=== PATIENT | male | born 1965 | race Caucasian/White ===

== ENCOUNTER 2024-05-02 08:02 | Inpatient (IN) | payer OTHER, SELFPAY ==
[2024-05-01 20:55] VITALS: BP 101/72
[2024-05-01 21:11] LABS: % Basophils 0.8 % (0-2); % Eosinophils 1.6 % (0-6); % Immature Granulocytes 0.6 % (0-0.5); % Lymphocytes 26.9 % (20.5-51.1); % Monocytes 11.2 % (1.7-9.3); % Neutrophils 58.9 % (42.2-75.2); Absolute Basophils 0.1 10^3/uL (0-0.2); Absolute Eosinophils 0.2 10^3/uL (0-0.7); Absolute Immature Granulocytes 0.1 10^3/uL (0-0.05); Absolute Lymphocytes 2.5 10^3/uL (1.2-3.4); Absolute Monocytes 1.1 10^3/uL (0.1-0.6); Absolute Neutrophils 5.6 10^3/uL (1.4-6.5); Hematocrit 45.9 % (39.0-52.0); Mean Corp Hgb Conc. 34.9 g/dL (33.0-37.0); Mean Corpuscular Hgb 27.8 pg (27.0-31.0); Mean Corpuscular Volume 79.7 fL (80.0-94.0); Nucleated Red Blood Cells % 0 % (-); Platelet Count 269 10^3/uL (130-400); Red Blood Cell Count 5.76 10^6/uL (4.70-6.10); Red Cell Dist. Width 15.1 % (11.5-14.5); White Blood Cell Count 9.5 10^3/uL (4.8-10.8)
[2024-05-01 21:22] LABS: Lactic Acid 0.8 mmol/L (0.7-2.0)
[2024-05-01 21:33] LABS: ALT (SGPT) 26 U/L (0-50); AST (SGOT) 29 U/L (17-59); Albumin 4.9 g/dl (3.5-5.0); Alkaline Phosphatase 78 U/L (38-126); Blood Urea Nitrogen 39 mg/dl (9-20); Calcium 10.4 mg/dl (8.4-10.2); Carbon Dioxide 18 mmol/L (22-30); Chloride 98 mmol/L (98-107); Glucose 143 mg/dl (70-99); Lipase 58 U/L (23-300); Potassium 4.8 mmol/L (3.5-5.1); Sodium 130 mmol/L (135-145); Total Bilirubin 0.7 mg/dl (0.2-1.3); Total Protein 7.8 g/dl (6.3-8.2); eGFR 49.02
[2024-05-02] VITALS (15 sets, daily range): BP systolic 102–152; BP diastolic 57–98; BMI 23.4; BMI 21.9
--- NOTE | 2024-05-02 01:46 | EDRN ---
Pt sleeping when this RN entered room to assess him. Pt says he has a lesion in his intestines and it is getting inflamed. Pt had abd pain earlier but does not have any pain now. No n/v/d/c, fever/chills/cough, cp, sob, urinary symptoms,
weakness, dizziness. Pt has not eaten for 2 days - cannot say why.
[2024-05-02] MEDS: NSS 2000 IV (02:54)
[2024-05-02] MEDS: ZOFRAN 4 MG IV (02:54)
[2024-05-02] MEDS: DILAUDID 0.25 MG IV (02:58)
[2024-05-02] MEDS: OMNIPAQUE 50 ML PO (03:00)
--- NOTE | 2024-05-02 03:04 | EDRN ---
Pt was sleeping when this RN entered room to medicate him. Pt told this RN he does not take any medications regularly however when Dr Klein assessed pt he told her the medications he was taking. Med rec redone. Pt said 'I must not have heard you.'
Asked pt what his pain level is and he said 10/10. Asked pt if this is the worst pain he has/could have and he said his cancer pain was worse. Asked pt to re-rate pain and explained why pain scale is used with pain medication administration. Pt
got agitated with this RN's request and said he would not rate his pain.
[2024-05-02 03:58] LABS: Urine Albumin 1+ (Neg - Trace); Urine Bilirubin 1+ (Negative); Urine Character Slightly Cloudy (Clear); Urine Color Amber; Urine Glucose Negative (Negative); Urine Ketone Negative (Negative); Urine Leukocyte 1+ (Negative); Urine Nitrite Negative (Negative); Urine Occult Blood Negative (Negative); Urine Urobilinogen 1+ (Neg - 1+)
[2024-05-02 04:46] LABS: Urine Amorphous Seen; Urine Granular Cast >15 /LPF (0); Urine Hyaline Cast >15 /LPF (0-2); Urine Mucus Moderate; Urine Squamous Cell >30 /LPF (Few)
[2024-05-02 04:47] LABS: Urine Bacteria Many (Negative)
--- NOTE | 2024-05-02 05:54 | ED.GENMED ---
History of Present Illness
General
Chief Complaint: Abdominal Pain
Source: patient
Exam Limitations: none
Time Seen by Provider: 05/02/24 02:13
Nursing documentation reviewed up to this point in time: agreed with
History of Present Illness
History of Present Illness:
This is a 59-year-old gentleman who has history of adrenal carcinoma with resection 2020 received adjuvant focal XRT which completed 2021. No history of recurrence.
He has history of bipolar disorder and more recently has been complaining of intermittent severe mid to right lower quadrant abdominal pain with abdominal bloating, intermittent nausea and vomiting.
He states he has history of abdominal adhesions with prior small bowel obstruction requiring hospitalization perhaps 1 to 2 years ago.
More recently he presented to [facility] ED mid March with similar complaints of crampy abdominal pain, bloating and CAT scan revealed terminal ileitis with partial small bowel obstruction and concern for sigmoid colitis. He declined
admission at that time but has since followed up with GI, Dr. Mascorro and was started on Rinvoq for probable Crohn's disease April 16.
He underwent colonoscopy April 25. Colon biopsies were negative for inflammation. He states there was concern for inflammation/a noncancerous lesion for which GI recommended general surgery input. Thus far patient has not heard from the
general surgeon.
Over the past 4 days patient complains of persistent crampy mid to right lower quadrant abdominal pain, abdominal bloating, intermittent nausea and vomiting. He has had poor oral intake over the past 4 days. He has been passing intermittent gas
and occasional soft stools. He denies diarrhea, denies bloody stools nor mucoid stools.
He has not had a fever nor chills. No chest pain no cough no shortness of breath.
He has not been taking anything for discomfort.
Along with Rinvoq, his other daily medications include gabapentin, Trintellix, BuSpar, trazodone.
Past History
Past History
ED Past Medical History: Cancer (Adrenal carcinoma resected 2020), Psychiatric and Other (Newly diagnosed Crohn's disease with terminal ileitis noted on CAT scan April 06)
ED Past Surgical History: Cholecystectomy and Other (Adrenal carcinoma resection 2020)
Social History
Tobacco: Smoker
Alcohol: None
Drug: None
Personal: Single
Living: alone
Employment: Employed
Family History
Family History: Other (Noncontributory)
Phy Exam
Physical Exam
Physical Exam:
GENERAL: 59-year-old gentleman appears somewhat older than stated age, awake, minimally drowsy, intermittently appears in mild to moderate distress. Easily communicative.
EYE: pupils equal and reactive. anicteric
NECK: Supple, nontender, no meningismus, no significant adenopathy.
ENT: posterior pharynx is clear, oral mucosa is moderately dry. TM clear b/l, nares patent.
CARDIAC: Regular rate and rhythm. no murmur.
LUNGS: Clear breath sounds bilaterally, no acute respiratory distress, no wheezes/rales/rhonchi
ABDOMEN: Soft, mildly distended, moderate generalized tenderness to palpation, no r/g, no cvat. Moderately hyperactive bowel sounds.
NEUROLOGICAL: Alert and oriented x3, no focal neuro deficits.
SKIN: Warm and dry, normal color, skin intact. No rash.
MUSCULOSKELETAL: No C/C/E. peripheral pulses are full and equal b/l. No palpable tenderness.
PSYCH: Normal and appropriate interaction.
Course
Orders/Labs/Results
Orders:
Orders
05/01/24 21:05
Complete Blood Count/With Diff Urgent
Comprehensive Metabolic Panel Urgent
Lactate Level [Lactic Acid] Urgent
Lipase Urgent
05/02/24 02:29
0.9% Sodium Chloride 1000 ml [Nss] 2,000 ml IV BOLUS
HYDROmorphone [Dilaudid] 0.25 mg IV NOW STA
Iohexol [Omnipaque] See Protocol PO NOW STA
Ondansetron Injectable [Zofran] 4 mg IV NOW STA
05/02/24 02:30
CT Abd/pel W Iv And Oral Contr Urgent
Comment:
Reason For Exam: crampy abd pain x 4 days, N/V
05/02/24 03:44
Urinalysis Reflex To Culture Urgent
Date Specimen was Collected: 05/02/24
Time Specimen was Collected: 03:42
Urine Microscopic Reflex Cult Urgent
Urine Culture Urgent
NAMAN Source: U
Specimen Description:
Date Specimen was Collected: 05/02/24
Time Specimen was Collected: 03:42
Abnormal Lab Results
05/01/24 05/02/24
21:05 03:44
MCV 79.7 L fL
(80.0-94.0)
RDW 15.1 H %
(11.5-14.5)
Abs Immat Gran (auto) 0.1 H 10^3/uL
(0-0.05)
Absolute Monos (auto) 1.1 H 10^3/uL
(0.1-0.6)
Immature Gran % 0.6 H %
(0-0.5)
Monocytes % 11.2 H %
(1.7-9.3)
Sodium 130 L mmol/L
(135-145)
Carbon Dioxide 18 L mmol/L
(22-30)
BUN 39 H mg/dl
(9-20)
Creatinine 1.6 H mg/dL
(0.7-1.3)
Glucose 143 H mg/dl
(70-99)
Calcium 10.4 H mg/dl
(8.4-10.2)
Urine Bilirubin 1+ A
(Negative)
Leukocyte Esterase Rfl 1+ A
(Negative)
Urine RBC 7-10 A /HPF
(0-2)
Urine WBC (Reflex) 11-15 A /HPF
(0-5)
Urine Bacteria (Reflex) Many A
(Negative)
Urine Albumin (Reflex) 1+ A
(Neg - Trace)
05/01/24 21:05
05/01/24 21:05
Vital Signs
Initial and Last Documented VS:
Initial Vital Signs
Temp Pulse Resp BP Pulse Ox
98.3 F 105 22 101/72 95
05/01/24 20:55 05/01/24 20:55 05/01/24 20:55 05/01/24 20:55 05/01/24 20:55
Last Documented Vital Signs
Temp Pulse Resp BP Pulse Ox
97.9 F 92 16 152/89 95
05/02/24 01:50 05/02/24 04:00 05/02/24 01:50 05/02/24 04:00 05/02/24 04:00
MDM/Problems Addressed
Differential Diagnosis Includes:
Concern for small bowel obstruction, concern for exacerbation of Crohn's disease, concern for adhesive disease, colitis, electrolyte abnormality/dehydration.
Clinically patient appears dry. However remains hemodynamically stable, afebrile.
Labs thus far reveal normal CBC, normal lactic acid.
Chemistries show elevated creatinine of 1.6, elevated BUN of 39. Mild hyponatremia, mild acidosis.
Patient notes no prior history of renal insufficiency and as he clinically appears dry and has had very poor oral intake over the past 4 days I suspect elevated creatinine/acute kidney injury is dehydration in nature.
Will initiate IV fluid bolus/resuscitation.
Will medicate for pain and nausea.
Will plan for CT abdomen pelvis with oral and IV contrast.
Chronic conditions affecting care: Immunosuppressed (Rinvoq) and Cancer
*Radiology
Radiology exam reviewed: radiology read reviewed (CAT scan shows severe terminal ileitis with high-grade small bowel obstruction.)
*Pulse Oximetry
Patient hypoxic: no
*Critical Care Note
Total Time (30-74mins, 75-104mins- exclusive of procedures): Not Applicable
Update Note
Update Note:
06:00
Patient is moderately more comfortable after IV pain medication and IV fluids.
CAT scan shows severe terminal ileitis with high-grade small bowel obstruction.
Due to acute kidney injury, severe nature of terminal ileitis patient will require acute hospitalization, continue IV fluids, GI input.
ED Attending Note
-
Portions of this chart may have been created with voice recognition software.� Occasional wrong word or��sound alike� substitutions may have occurred due to the inherent limitations of voice recognition software.
Discharge Plan
Departure
Patient Disposition: Admit
Date of Disposition: 05/02/24
Time of Disposition: 06:00
Admit to doctor: Carole
Presentation/result/management discussed w/ accepting MD/DO: Hospitalist
Condition: Fair
Discharge Problem:
severe terminal ileitis, SBO (small bowel obstruction), Acute kidney injury
Prescriptions:
No Action
trazodone 50 mg Tablet
50 mg PO HS
pantoprazole [Protonix] 40 mg Tablet,Delayed Release (Dr/Ec)
40 mg PO DAILY
gabapentin 300 mg Capsule
900 mg PO TID
buspirone 15 mg Tablet
15 mg PO BID
Trintellix 10 mg Tablet
10 mg PO DAILY
Rinvoq
1 tab PO DAILY
Patient Comments:
pt does not know mg
Referrals:
Dilan Mayes DO [Family Provider] -
Interventions
Interventions:
*Risk Screen - Suicide Last Done: 05/01/24 20:55
*General Assessment Last Done: 05/01/24 20:55
*Neglect/Abuse Screening Last Done: 05/01/24 20:55
ED- Fall Risk Assessment Last Done: 05/02/24 01:55
*ED COVID-19 Vaccine History Last Done: 05/02/24 01:45
GO-Vtwbth-Gcsmpesyhx Assessment Last Done: 05/02/24 01:55
Discharge Date and Time
Print Language: OCCITAN
--- NOTE | 2024-05-02 06:53 | HPS.HSE ---
Family Physician
-
Family Physician: Dilan Mayes
Chief Complaint
-
Abdominal pain
History of Present Illness
This is a 59-year-old male with past medical history of bipolar, adrenal carcinoma with resection in 2020 status post adjuvant radiation, in remission, presents to the emergency department with 4 days of increasing abdominal pain and distention.
Patient reports intermittent right lower quadrant abdominal pain with bloating and intermittent nausea and vomiting for several days. No diarrhea. No fevers or chills. Over the past 4 days the pain has been more persistent, crampy mid to right
lower quadrant with bloating and nausea and vomiting. Decreased p.o. intake over the last 4 days. He reports that he is passing gas and occasional soft stool. Denies bloody stools or mucoid stools. Became significantly severe today so he called
1 and he was brought to the emergency department.
Patient stated that he has a history of prior small bowel obstruction secondary to abdominal adhesions which required hospitalization. He was recently seen at an outside hospital where he had a CT scan that revealed terminal ileitis with partial
small bowel obstruction. He declined admission at that time since he had a follow-up with GI. He was started on Rinvoq for probable Crohn's disease. He did not get colonoscopy on April 25 which was negative for active disease. He stated that
there was concern for inflammation/noncancerous lesion for which GI recommended a general surgery input. He has not head from the general surgeon.
In the emergency department he was afebrile, blood pressure was 116/73 with a pulse of 83. Normal oxygen saturation. CBC was unremarkable. Electrolytes notable for a sodium of 130, a BUN of 39 and a creatinine of 1.6. LFTs were unremarkable.
Lipase normal. CT of the abdomen pelvis again shows severe terminal ileitis with strictures and a high-grade distal small bowel obstruction
Medical History
Past Medical History
Past Medical History: Reports Cancer (Renal cancer status post resection)
Additional Past Medical History:
Crohn's disease with, no ileitis noted on CT scan in March
Past Surgical History: Reports Cholecystectomy and Other (Adrenal carcinoma resection)
Social History
Tobacco: Smoker
Alcohol: None
Drug: None
Personal: Single
Living: Alone
Employment: Employed
Family History
Family History: Not pertinent
Allergies / Home Medications
Allergies reflects when Allergies were last updated in [facility].
Home Medications with original date entered in [facility]
Allergy/Medication List:
Allergies
Allergy/AdvReac Type Severity Reaction Status Date / Time
No Known Allergies Allergy Unverified 05/02/24 01:46
Home Medications
Rinvoq 1 tab PO DAILY 05/02/24
buspirone 15 mg tablet 15 mg PO BID 05/02/24
gabapentin 300 mg capsule 900 mg PO TID 05/02/24
pantoprazole 40 mg tablet,delayed release (Protonix) 40 mg PO DAILY 05/02/24
trazodone 50 mg tablet 50 mg PO HS 05/02/24
vortioxetine 10 mg tablet (Trintellix) 10 mg PO DAILY 05/02/24
Review of Systems
-
Constitutional: Reports No Symptoms
EENT: Reports No Symptoms
Respiratory: Reports No Symptoms
Abdomen/GI: Reports Abdominal Pain, Nausea and Vomiting
: Reports No Symptoms
Musculoskeletal: Reports No Symptoms
Skin: Reports No Symptoms
Neurological: Reports No Symptoms
Endocrine: Reports No Symptoms
Hematologic/Lymphatic: Reports No Symptoms
Psych: Reports No Symptoms
Physical Exam
Vital Signs
Vital Signs
Temp Pulse Resp BP Pulse Ox
97.9 F 83 14 116/73 95
05/02/24 01:50 05/02/24 06:15 05/02/24 06:15 05/02/24 06:15 05/02/24 06:15
Physical Exam
General: Well Developed, Appears in Distress and Pain
HEENT: NormoCephalic, Anicteric, Moist mucous membranes, Atraumatic and PERRLA
Respiratory: Clear
Cardiac: S1/S2 and Regular Rhythm
Breast: Deferred by me
GI: Tender, Distended, No Hepatosplenomegaly and Other (firm)
Rectal: Deferred by Provider
Genito-urinary: Deferred by me
Musculoskeletal: No Clubbing, No Cyanosis and No Edema
Skin: Warm
Neuro: AO x 3 and Nonfocal/grossly intact
Hematologic/Lymphatic: No Lymphadenopathy
Psych: Calm
Laboratory Results
-
05/01/24 21:05
05/01/24 21:05
Laboratory Results
Lactic Acid 0.8 mmol/L (0.7-2.0) 05/01/24 21:05
Total Bilirubin 0.7 mg/dl (0.2-1.3) 05/01/24 21:05
AST 29 U/L (17-59) 05/01/24 21:05
ALT 26 U/L (0-50) 05/01/24 21:05
Alkaline Phosphatase 78 U/L (38-126) 05/01/24 21:05
Lipase 58 U/L (23-300) 05/01/24 21:05
Data Reviewed
-
CT Scan: Report Reviewed by me
Lab Data: Labs Reviewed by me
Old Records: Reviewed
Impression/Plan
-
IMPRESSION:
59 y.o with IBD likely crohns and known terminal ileitis on Rinvoq now here with stricture formation and high grade SBO.
PLAN:
1. SBO - SBO here likely secondary to inflammation than adhesions. Not vomiting and HD stable.
- admit to med surg
- npo for now
- supportive care with antiemetics, pain control and iv fluids
- given IBD, will consult GI as well as surgery
- holding oral meds for now except gapapentin
2. MITCHELL - suspect mitchell, no h/o CKD and now with sBO and decreased oral intake. CT scan shows no renal/collecting system/bladder anomalies
- continue iv hydration for now
- avoid additional nephrotoxins
-
DVT PPX - heparin sq
Code status - full code
[2024-05-02] MEDS: DILAUDID 0.5 MG IV (07:23)
--- NOTE | 2024-05-02 07:54 | W.PN.HOSP.TC ---
Addendum entered and electronically signed by Kendra Seth MD 05/02/24 16:01:
I personally performed a history and physical exam of the patient and discussed management with the resident. I reviewed the resident's note and agree with the documented findings and plan of care HPI/CC.
A/P:
# High grade SBO/terminal ileitis likely from crohn's stricture
# H/O crohn's disease on rinvoq
CT abdomen: Severe terminal ileitis with underlying stricturing and resultant high-grade distal small bowel obstruction
NGT placed, monitor NG output.
Continue n.p.o., with IVF
pain control, antiemetics.
GI on board,
Cont IV Solu-Medrol
Colorectal surgery also consulted
# Likely MITCHELL due to GI loss/dehydration
# Hyponatremia, likely due to dehydration
Creatinine 1.6, baseline unknown.
Sodium level 130 today
Monitor with IV fluid.
Avoid nephrotoxins.
# Current smoker
smokes 1 pack/day for the past 40 years
Nicotine patch
DVT ppx: HSQ
FC
Original Note:
Today's Communication/Plan
-
Continue n.p.o., IVF
Continue steroids
Colorectal surgery consult
Assessment / Plan
Assessment / Plan
Impression: This is a 67-year-old male patient with PMH of adrenal carcinoma s/p radiation/resection, Crohn's disease, bipolar disease and Hx of terminal ileitis on Rinvoq that presented to the ED with abdominal pain, nausea and vomiting.
Assessment/plan:
#SBO-? Likely due to flare of Crohn's disease/prior Hx of terminal ileitis and SBO
�CT abdomen:Severe terminal ileitis with underlying stricturing and resultant high-grade distal small bowel obstruction
-Continue n.p.o., hold oral meds
-Continue IV fluid resuscitation, pain control, antiemetics.
-GI consulted, appreciated
-Continue IV Solu-Medrol and monitor NG output.
-Colorectal surgery consulted
#MITCHELL�likely due to dehydration/poor oral intake
-Creatinine 1.6, baseline unknown.
�Hyponatremia 130, likely due to dehydration
-Monitor with IV fluid.
-Avoid nephrotoxins.
#Current smoker
� Smokes 1 pack/day for the past 40 years
� Nicotine patch
DVT PPX - heparin sq
Code status - full code
Anticipated Discharge: 24 - 48 hours
Subjective/Interval History
-
Date of Service: May 02, 2024
Patient continues to have abdominal pain
Objective Data
-
Labs:
Laboratory Results
05/01/24
21:05
WBC 9.5
Hgb 16.0
Hct 45.9
Plt Count 269
Sodium 130 L
Potassium 4.8
Chloride 98
Carbon Dioxide 18 L
BUN 39 H
Creatinine 1.6 H
Glucose 143 H
Calcium 10.4 H
Total Bilirubin 0.7
AST 29
ALT 26
Alkaline Phosphatase 78
Vital Signs:
Vital Signs
Temp Pulse Resp BP Pulse Ox
97.9 F 93 20 136/98 95
05/02/24 07:17 05/02/24 07:17 05/02/24 07:17 05/02/24 07:17 05/02/24 07:17
Review of Systems
-
Constitutional: Denies Fever
EENT: Reports No Symptoms Reported
Respiratory: Reports No Symptoms
Cardiac: Reports No Symptoms
Abdomen/GI: Reports Abdominal Pain and Nausea
Musculoskeletal: Reports No Symptoms
Skin: Reports No Symptoms
Neuro: Reports No Symptoms
Physical Exam
-
General: No Apparent Distress and Pain
HEENT: Normocephalic
Respiratory: Clear to Auscultation
Cardiac: Regular Rhythm and S1/S2; Negative Murmur
GI: Soft, Nontender and Nondistended
Musculoskeletal: No Edema
Skin: Warm and Dry
Neuro: Awake, Alert and Oriented
Psych: Calm
--- NOTE | 2024-05-02 08:50 | CON.GI ---
Addendum entered and electronically signed by Nelda Taylor Do, MD 05/02/24 15:41:
I personally performed a history and physical exam of the patient and discussed management with the resident. I reviewed the resident's note and agree with the documented findings and plan of care HPI/CC.
Nico is a 59yo M with h/o remote adrenal carcinoma s/p resection 2020 and recently diagnosed Crohn's of unclear involvement currently on Rinvoq who was admitted with acute abd pain. Interview was limited as despite coming back several times pt
states he had important phone call to take. NGT placed in ER with 800mL output. Vitals stable afebrile, exam NGT in nare, soft, mild distension. Labs reviewed. CTAP IV and oral contrast shows 1. Severe terminal ileitis with underlying
stricturing and resultant high-grade distal small bowel obstruction.
Impression
- High grade SBO likely from crohn's stricture
- H/O crohn's disease
On rinvoq
- Remote adrenal carcinoma
- + UA
- s/p CYY
Recommendations
- NPO
- Monitor NGT output
- IVF and pain management per primary team
- Recommend stool studies if able to produce any
- Await urine culture
- Recommend IV steroid
- Obtain records from [facility] of recent colonoscopy 04/25/2022. Requested
- Await colorectal surgery recommendations
Will follow with you
Original Note:
Consultation
-
Date/Time Consultation Requested: 05/02/2024 7:24 AM
Date/Time Consultation Performed: 05/02/2024 9:30 AM
Requesting Provider: Frieda Lam MD
Performing Provider: Nelda Rico MD
Reason for Consultation: SBO
Medical History
Chief Complaint / HPI
Chief Complaint: Abdominal pain
History of Present Illness:
59-year-old male with PMH of left-sided adenocarcinoma s/p resection 2020 with adjuvant focal XRT completed 2021, bipolar disorder, abdominal adhesions with prior SBO, recent diagnosis of Crohn's disease, who presented to ED on 05/01/2024 with 4
days history of worsening crampy/stabbing abdominal pain in the mid to RLQ abdominal pain. Patient reports that the pain is worsened by leaning on the right side and alleviated by leaning on the left side. He has also had poor p.o. intake in the
past 4 days. Patient was recently seen at [facility] for similar presentation with CAT scan showing terminal ileitis with partial SBO. However patient declined admission at that time and underwent an outpatient colonoscopy on April 25,
2021 for with biopsy at [place] (Dr. Mascorro) and has not seen the results yet. Patient was started on Rinvoq and has been compliant with this medication. He is able to pass gas and occasional soft stools but denies diarrhea, bloody stool, fever,
chills, shortness of breath, chest pain. Gastroenterology was consulted for further evaluation and management.
Past Medical History
Past Medical History: Psychiatric and Other (Left adrenal cancer, Crohn's disease, terminal ileitis, abdominal adhesions)
Past Surgical History: Cholecystectomy
Social History
Tobacco: Smoker (40 pack years)
Alcohol: None
Drug: None
Personal: Single
Living: With Roomate
Employment: Employed
Family History
Family History: Reviewed & Not Pertinent
Allergies / Home Medications
Allergy/AdvReac Type Severity Reaction Status Date / Time
No Known Allergies Allergy Unverified 05/02/24 01:46
�Medication �Instructions �Recorded
Rinvoq 1 tab PO DAILY 05/02/24
buspirone 15 mg tablet 15 mg PO BID 05/02/24
gabapentin 300 mg capsule 900 mg PO TID 05/02/24
pantoprazole 40 mg tablet,delayed 40 mg PO DAILY 05/02/24
release (Protonix)
trazodone 50 mg tablet 50 mg PO HS 05/02/24
vortioxetine 10 mg tablet 10 mg PO DAILY 05/02/24
(Trintellix)
Review of Systems
-
History Source: Patient
All other systems: A 12 pt ROS was Negative except as stated above in HPI
Vital Signs
Temp Pulse Resp BP Pulse Ox
97.9 F 93 20 136/98 95
05/02/24 07:17 05/02/24 07:17 05/02/24 07:17 05/02/24 07:17 05/02/24 07:17
Physical Exam
Exam
General: No Apparent Distress, Comfortable and Poor Appetite; Negative Fever or Chills
Respiratory: Clear; Negative Wheezes
Cardiac: S1/S2 and Regular Rhythm; Negative Murmur or Rub
GI: Soft, Non Tender, Non Distended and Normal Bowel Sounds
Skin: Warm
Neuro: Awake and AO x 3
Psych: Calm
Results
WBC 9.5 10^3/uL (4.8-10.8) 05/01/24 21:05
Hgb 16.0 g/dL (13.0-18.0) 05/01/24 21:05
Hct 45.9 % (39.0-52.0) 05/01/24 21:05
MCV 79.7 fL (80.0-94.0) L 05/01/24 21:05
Plt Count 269 10^3/uL (130-400) 05/01/24 21:05
Absolute Neuts (auto) 5.6 10^3/uL (1.4-6.5) 05/01/24 21:05
Sodium 130 mmol/L (135-145) L 05/01/24 21:05
Potassium 4.8 mmol/L (3.5-5.1) 05/01/24 21:05
Chloride 98 mmol/L (98-107) 05/01/24 21:05
Carbon Dioxide 18 mmol/L (22-30) L 05/01/24 21:05
BUN 39 mg/dl (9-20) H 05/01/24 21:05
Creatinine 1.6 mg/dL (0.7-1.3) H 05/01/24 21:05
Calcium 10.4 mg/dl (8.4-10.2) H 05/01/24 21:05
Total Bilirubin 0.7 mg/dl (0.2-1.3) 05/01/24 21:05
AST 29 U/L (17-59) 05/01/24 21:
ALT 26 U/L (0-50) 05/01/24 21:05
Alkaline Phosphatase 78 U/L (38-126) 05/01/24 21:
Lipase 58 U/L (23-300) 05/01/24 21:05
Assessment / Plan
-
Assessment: 59-year-old male with PMH of SBO with adhesions, adrenal carcinoma s/p resection with adjuvant focal XRT presenting with 4 days history of worsening stabbing RLQ abdominal pain.
Impression:
Small bowel obstruction
MITCHELL
Hyponatremia
Hypercalcemia
UTI
Recommendation:
SBO-suspect due to worsening stricturing from Crohn's disease given history of terminal ileitis and SBO.
-CT abdomen/pelvis 05/02/2024 with severe terminal ileitis with underlying stricturing and high-grade distal SBO.
-Keep NPO.
-IV fluid resuscitation, pain control, antiemetics.
-NG tube to suction, with bilious drainage.
-IV Solu-Medrol and monitor NG output.
-Hold oral meds.
-Colorectal surgery consulted.
-Nicotine patch.
-Advised smoking cessation given that smoking worsens Crohn's.
-
-
Thank you for consultation and allowing me to participate in the patient's care. Please call the global consumer sector vice president GI physician during the after hours with any questions or concerns.
[2024-05-02] MEDS: NSS 1000 IV ×2 (09:25→19:07)
[2024-05-02] MEDS: NICODERM TRANSDERMAL 21 MG TRANSDERM (09:46)
[2024-05-02] MEDS: HEPARIN 5000 UNITS SC ×3 (11:16→23:46)
[2024-05-02] MEDS: SOLU-MEDROL PF 20 MG IV ×2 (11:18→23:46)
--- NOTE | 2024-05-02 11:54 | EDRN ---
Pt signed consent to obtain records from [facility]. Being FAXED by deputy [employer] [place] marshal
--- NOTE | 2024-05-02 12:34 | CON.CRS ---
Consultation
-
Date/Time Consultation Performed: 05/02/2024, 11:40 AM
Performing Provider: Jus Thomas MD
Medical History
-
History of Present Illness:
59-year-old male with PMH of bipolar, adrenal carcinoma s/p left adrenalectomy 2020, s/p cholecystectomy, Crohn's disease (recently diagnosed, follows with GI at [facility], Dr Mascorro, on rinvoq) who presents with 4 days of worsening right-sided
abdominal pain associated with bloating and nausea/vomiting. He states this all started a few days after his colonoscopy, which he states was performed on 04/25/2024. He has not received the results yet. He has been passing gas and stools, but
none since last night. Denies any hematochezia, fevers or SOB/CP. He says that this has happened to him in the past, but it resolved nonoperatively. He stated that he was frustrated getting several different people all asking him the same
questions and therefore his answers to me were without much detail and he was not very forthcoming with information.
Past Medical History
Past Medical History: Other (As above)
Past Surgical History: Other (As above)
Social History
Tobacco: Smoker (40 pack years)
Alcohol: None
Drug: None
Personal: Single
Living: With Roomate
Employment: Employed
Family History
Family History: Other (Denies family history of CRC or IBD)
Allergies / Home Medications
Allergy/AdvReac Type Severity Reaction Status Date / Time
No Known Allergies Allergy Unverified 05/02/24 01:46
�Medication �Instructions �Recorded �Confirmed �Type
Rinvoq 1 tab PO DAILY 05/02/24 05/02/24 History
buspirone 15 mg tablet 15 mg PO BID 05/02/24 05/02/24 History
gabapentin 300 mg capsule 900 mg PO TID 05/02/24 05/02/24 History
pantoprazole 40 mg tablet,delayed 40 mg PO DAILY 05/02/24 05/02/24 History
release (Protonix)
trazodone 50 mg tablet 50 mg PO HS 05/02/24 05/02/24 History
vortioxetine 10 mg tablet 10 mg PO DAILY 05/02/24 05/02/24 History
(Trintellix)
Review of Systems
-
A 10 point review of systems was completed, and was negative except as per HPI.
Physical Exam
Vital Signs
Temp 97.9 F 05/02/24 07:17
Pulse 96 05/02/24 09:45
Resp Rate 20 05/02/24 09:45
Blood pressure 111/59 05/02/24 11:00
SaO2 94 05/02/24 08:40
05/01/24 05/02/24 05/03/24
06:59 06:59 06:59
Actual Weight 78.3 kg
Body Mass Index (BMI) 23.4
Lab Results / Allergies
05/01/24 21:05
05/01/24 21:05
WBC 9.5 10^3/uL (4.8-10.8) 05/01/24 21:05
Hgb 16.0 g/dL (13.0-18.0) 05/01/24 21:05
Hct 45.9 % (39.0-52.0) 05/01/24 21:05
Plt Count 269 10^3/uL (130-400) 05/01/24 21:05
Abs Immat Gran (auto) 0.1 10^3/uL (0-0.05) H 05/01/24 21:05
Neutrophils % 58.9 % (42.2-75.2) 05/01/24 21:05
Allergy/AdvReac Type Severity Reaction Status Date / Time
No Known Allergies Allergy Unverified 05/02/24 01:46
Physical Exam
General: Well Developed, Well Nourished, No Apparent Distress and Other (NGT in place with bilious output)
HEENT: Normocephalic and Atraumatic
Respiratory: Non Labored Respirations
GI: Soft, Tender (Mildly to moderately diffusely tender, worst in the suprapubic to left lower quadrant, no rebound or guarding) and Distended (Mildly to moderately distended with tympany)
Skin: Warm and Dry
Neuro: AO x 3
Assessment / Plan
-
59-year-old male with PMH of bipolar, adrenal carcinoma s/p left adrenalectomy 2020, s/p cholecystectomy, Crohn's disease (recently diagnosed, follows with GI at [facility], Dr Mascorro, on rinvoq) who presents with 4 days of worsening right-sided
abdominal pain associated with bloating and nausea/vomiting. He states this all started a few days after his colonoscopy, which he states was performed on 04/25/2024, results not available. No flatus/BMs today. He has had an SBO in the past
treated nonoperatively. His WBC was 9.5, Hb 16.0, platelets 269, CR 1.6, lactate 0.8, CRP 60.1, CT showing severe terminal ileitis with wall thickening and mucosal edema involving a 30 cm segment associated with a high-grade small bowel
obstruction; no evidence of perforation
� Crohn's flare associated with terminal ileitis causing an SBO
�No hemodynamic instability or evidence of peritonitis; recommend nonoperative management
�Terminal ileal narrowing likely inflammatory (versus fibrostenotic) due to elevated CRP and radiographic appearance; recommend treating with IV steroids
�Appreciate GI; agree with stool studies if able
� Continue n.p.o. with NGT and IVF
� MITCHELL, strict I's/O, IVF, avoid nephrotoxins
� Pain control with Dilaudid as needed; minimize as possible due to risk of opioid tolerance in IBD population
� Recommend DVT PPx due to elevated risk of VTE and IBD population
� No indications for antibiotics at this time
� Appreciate hospitalist
[2024-05-02] MEDS: ATIVAN 0.5 MG IV (16:17)
[2024-05-02] MEDS: NSS (PRESERVATIVE FREE) 0.25 ML IV (16:17)
--- NOTE | 2024-05-02 23:35 | PTCARENOTE ---
Pt arrived to room 437-01. Pt ambulated from stretcher to bed with x1 assistance. Pt AAOx3, VSS. Pt with NG tube in right nare. Pt connected to low intermittent suction as per order. Pt with no complaints of pain, n/v. Pt oriented to room, call atkinson
placed within reach.
[2024-05-02] MEDS: SOLU-MEDROL PF IV (23:45)
[2024-05-03] MEDS: NSS 1000 IV (04:25)
--- NOTE | 2024-05-03 06:39 | PTCARENOTE ---
Pt called magnetic tape typewriter operator into room, upon entering pt stated, 'hurry up and get me to the restroom.' Pt assured he will be assisted just to wait a moment while NG tube and IV line can be straightened out to get pt to restroom safely. Pt became agitated
stating, 'you are just being difficult I don't care what you have to do hurry it up I want to go now.' Pt re educated about need for safety- assisted to bathroom safely.
--- NOTE | 2024-05-03 07:15 | W.PN.HOSP.TC ---
Addendum entered and electronically signed by Kendra Seth MD 05/04/24 13:07:
Total DC time 40 minutes
Addendum entered and electronically signed by Kendra Seth MD 05/03/24 13:52:
I personally performed a history and physical exam of the patient and discussed management with the resident. I reviewed the resident's note and agree with the documented findings and plan of care HPI/CC.
A/P:
# High grade SBO/terminal ileitis likely from crohn's stricture
# H/O crohn's disease on Rinvoq
CT abdomen: Severe terminal ileitis with underlying stricturing and resultant high-grade distal small bowel obstruction
NGT placed,
Started IV Solu-Medrol
Unfortunately due to social circumstances, patient elected to leave the hospital AMA
IV Solu-Medrol will be changed to prednisone and send to his pharmacy
# MITCHELL due to GI loss/dehydration, resolved
# Hyponatremia, due to dehydration, resolved
Creatinine 1.6 improved to 1.0 following IV fluid
# Current smoker
smokes 1 pack/day for the past 40 years
Nicotine patch
DVT ppx: HSQ
FC
Original Note:
Today's Communication/Plan
-
Patient leaving AMA
Assessment / Plan
Assessment / Plan
Impression: This is a 67-year-old male patient with PMH of adrenal carcinoma s/p radiation/resection, Crohn's disease, bipolar disease and Hx of terminal ileitis on Rinvoq that presented to the ED with abdominal pain, nausea and vomiting.
Assessment/plan:
#SBO-? Likely due to flare of Crohn's disease/prior Hx of terminal ileitis and SBO
�CT abdomen:Severe terminal ileitis with underlying stricturing and resultant high-grade distal small bowel obstruction
-Continue n.p.o., hold oral meds
-Continue IV fluid resuscitation, pain control, antiemetics.
-GI consulted, appreciated
-Continue IV Solu-Medrol and monitor NG output.
-Colorectal surgery consulted, input appreciated
-Patient will be discharged on 40 mg prednisone as per GI X 3 weeks and is advised to follow-up with [facility]
#MITCHELL�likely due to dehydration/poor oral intake
-Creatinine 1.6, baseline unknown.
�Hyponatremia 130, likely due to dehydration
-Monitor with IV fluid.
-Avoid nephrotoxins.
#Current smoker
� Smokes 1 pack/day for the past 40 years
� Nicotine patch
Patient adamant on leaving today despite explanation of risks associated with leaving early from the hospital without finishing his steroid course and stated that it would be dangerous for him to do so. Patient is aware/understands the risks of
associated with leaving hospital and will be leaving AGAINST MEDICAL ADVICE.
DVT PPX - heparin sq
Code status - full code
Anticipated Discharge: Today
Subjective/Interval History
-
Date of Service: May 03, 2024
Patient states that his abdominal pain has decreased and he had no episodes of nausea/vomiting.
Objective Data
-
Labs:
Laboratory Results
05/03/24
06:00
WBC Pending
Hgb Pending
Hct Pending
Plt Count Pending
Sodium Pending
Potassium Pending
Chloride Pending
Carbon Dioxide Pending
BUN Pending
Creatinine Pending
Glucose Pending
Calcium Pending
Total Bilirubin Pending
AST Pending
ALT Pending
Alkaline Phosphatase Pending
Vital Signs:
Vital Signs
Temp Pulse Resp BP Pulse Ox
98.2 F 79 14 106/57 96
05/02/24 23:30 05/02/24 23:30 05/02/24 23:30 05/02/24 23:30 05/02/24 23:30
I&O
05/02/24 05/03/24 05/04/24
06:59 06:59 06:59
Intake Total 1999
Output Total 2104
Balance -105 / -105
Review of Systems
-
All other systems: Reviewed and negative
Physical Exam
-
General: No Apparent Distress
HEENT: Normocephalic
Respiratory: Clear to Auscultation
Cardiac: Regular Rhythm and Irregular Rhythm
GI: Soft, Nontender, Nondistended, Normal Bowel Sounds and Other (NG tube)
Musculoskeletal: No Edema
Skin: Warm and Dry
Neuro: Awake, Alert and Oriented
Psych: Calm
[2024-05-03 07:29] VITALS: BP 98/57
[2024-05-03 07:58] LABS: Hematocrit 39.2 % (39.0-52.0); Hemoglobin 13.3 g/dL (13.0-18.0); Mean Corp Hgb Conc. 33.9 g/dL (33.0-37.0); Mean Corpuscular Hgb 27.5 pg (27.0-31.0); Mean Platelet Volume 8.5 fL (7.4-10.4); Platelet Count 281 10^3/uL (130-400); Red Blood Cell Count 4.84 10^6/uL (4.70-6.10); White Blood Cell Count 5.8 10^3/uL (4.8-10.8)
[2024-05-03 08:32] LABS: ALT (SGPT) 22 U/L (0-50); AST (SGOT) 21 U/L (17-59); Albumin 3.9 g/dl (3.5-5.0); Alkaline Phosphatase 73 U/L (38-126); Blood Urea Nitrogen 27 mg/dl (9-20); Calcium 9.2 mg/dl (8.4-10.2); Carbon Dioxide 19 mmol/L (22-30); Chloride 102 mmol/L (98-107); Estimated Creatinine Clearance 86 ml/min; Glucose 97 mg/dl (70-99); Potassium 4.8 mmol/L (3.5-5.1); Sodium 136 mmol/L (135-145); Total Bilirubin 0.4 mg/dl (0.2-1.3); Total Protein 6.6 g/dl (6.3-8.2); eGFR > 60.00
[2024-05-03] MEDS: SOLU-MEDROL PF IV (09:00)
[2024-05-03] MEDS: NICODERM TRANSDERMAL TRANSDERM (09:00)
--- NOTE | 2024-05-03 09:06 | W.PN.CRS1 ---
Today's Communication / Plan
-
As below
Assessment/Plan
-
59-year-old male with PMH of bipolar, adrenal carcinoma s/p left adrenalectomy 2020, s/p cholecystectomy, Crohn's disease (recently diagnosed, follows with GI at [facility], Dr Mascorro, on rinvoq) who presents with 4 days of worsening right-sided
abdominal pain associated with bloating and nausea/vomiting. He states this all started a few days after his colonoscopy, which he states was performed on 04/25/2024, results not available. No flatus/BMs today. He has had an SBO in the past
treated nonoperatively. His WBC was 9.5, Hb 16.0, platelets 269, CR 1.6, lactate 0.8, CRP 60.1, CT showing severe terminal ileitis with wall thickening and mucosal edema involving a 30 cm segment associated with a high-grade small bowel
obstruction; no evidence of perforation
� Crohn's flare associated with terminal ileitis causing an SBO, likely inflammatory stenosis
� Improving with nonoperative measures
�Continue IV Solu-Medrol 20 mg every 8
�Appreciate GI; agree with stool studies if able
� Continue n.p.o. with NGT and IVF; okay for clamp trial for 4 hours; if less than 150 mL okay to pull and start clears
� MITCHELL, strict I's/O, IVF, avoid nephrotoxins; resolved
� Pain control with Dilaudid as needed; minimize as possible due to risk of opioid tolerance in IBD population
� Continue DVT PPx due to elevated risk of VTE and IBD population
� No indications for antibiotics at this time
� Appreciate hospitalist
Dispo�patient adamant on leaving today, despite my persistent caution against leaving too early prior to complete resolution and needing IV steroids for another 1 to 2 days; I explained the risks of leaving, including recurrent/worsening SBO,
recurrent n/v, need for urgent surgery; despite my insistence, he said he wants to leave; discussed with hospitalist; if he leaves, would still provide him with oral tapering prednisone to decrease the risk of this recurring or worsening; would
recommend following up with his primary GI at [facility]
Subjective Data
Subjective Data
Date of Service: May 03, 2024
Much improved since yesterday.
No n/v, currently NPO with NGT.
Denies any further abdominal pain.
Passing flatus and had liquidy BM.
Voiding.
Stating that he wants to leave because he has important personal matters.
Objective Data
-
Vital Signs
Temp Pulse Resp BP Pulse Ox
98.4 F 79 20 98/57 97
05/03/24 07:29 05/03/24 07:29 05/03/24 07:29 05/03/24 07:29 05/03/24 07:29
Intake & Output
05/02/24 05/03/24 05/04/24
06:59 06:59 06:59
Intake Total 1999
Output Total 2104
Balance -105 / -105
Intake:
Oral fluids 0 / 0
IV fluids (Total) 1999
Nss 1,000 ml @ 125 mls/hr IV . 500 / 500
Q8H [facility] Rx#:[id number]
Output:
Gastrointestinal tube output ( 2104
Total)
Greene Sump 805 / 805
Urine, Voided 0 / 0
Lab Results
05/03/24 07:21
05/03/24 07:21
Physical Exam
-
General: No Acute Distress and AOx3
HEENT: Grossly Normal
Abdomen: Soft, Non Distended, Non Tender, No Guarding and No Rebound
Skin: Warm and Dry
[2024-05-03] MEDS: HEPARIN SC (09:36)
--- NOTE | 2024-05-03 10:15 | PTCARENOTE ---
0830 Pt anxious and upset about having NGTube in place. When attempt to explain reason for having NGtube, Pt stated' I just want to eat and take this tube out' Resident Lyubov here to see pt and explain to pt awaiting surgeon to see pt.
0930 Pt aware Surgeon did see pt and explain NGtube would be clamp for 4 hours and if no vomiting Ngtube can come out. Pt stated ' I am not waiting I want to go home now ' Resident and DR. Seth notified
10 am Resident here to see pt and explain AMA, pt signed form. Removed NGtube and IV at this time.
--- NOTE | 2024-05-03 12:31 | W.DCSUMMARY ---
Documented by User: Nella Mcarthur MD, Resident 05/03/24 13:37
Discharge Summary
Discharge Data
Date of Admission: 05/02/24
Date of Discharge: 05/03/24
-
Pending Results: No
Hospital Course
Discharging Physician : ,
Disposition : Against Medical Advice, Home
Primary care physician : Dilan Mayes
Principal Discharge diagnosis : Crohn's flare associated with terminal ileitis associated with SBO
Chronic Discharge diagnosis : bipolar, adrenal carcinoma with resection in 2020 status post adjuvant radiation, in remission
Hospital Course : This is a 67-year-old male patient with PMH of adrenal carcinoma s/p radiation/resection, Crohn's disease, bipolar disease and Hx of terminal ileitis on Rinvoq that presented to the ED with abdominal pain, nausea and vomiting. CT
scan showed severe terminal ileitis with underlying stricture and associated SBO. Colorectal surgery and GI were consulted. Symptoms were more likely due to flare of Crohn's disease so patient was n.p.o. and started on IVF, pain control and
antiemetics. Patient was also started on IV steroids and NG tube inserted. Patient was also given a nicotine patch. The patient had slowly started to improve the next day and expressed his wishes to leave hospital early despite explanation of
dangers of leaving hospital without completing his medication course. Patient was aware/understood risks and was advised to follow-up with his GI physician within a week and oral prednisone was sent to his pharmacy.
Important imaging findings :
05/02/2024 CT abdomen: Severe terminal ileitis with underlying stricturing and resultant high-grade distal small bowel obstruction.
Discharge Plan
-
Patient Disposition: Against Medical Advice
Referrals:
Dilan Mayes, DO [Family Provider] -
Prescriptions:
New
prednisone 20 mg tablet
40 mg PO DAILY 21 Days Qty: 42 0RF
Continued
trazodone 50 mg Tablet
50 mg PO HS
pantoprazole [Protonix] 40 mg Tablet,Delayed Release (Dr/Ec)
40 mg PO DAILY
gabapentin 300 mg Capsule
900 mg PO TID
buspirone 15 mg Tablet
15 mg PO BID
Trintellix 10 mg Tablet
10 mg PO DAILY
Rinvoq
1 tab PO DAILY
Patient Comments:
pt does not know mg
Discharge Orders:
Discharge Patient (As Directed); Ordered 05/03/24
Ordered By: Nella Mcarthur
Discharge Date and Time
Discharge Date/Time: 05/03/24 10:45
Print Language: ALGERIAN

Documented by User: Kendra Seth MD 05/04/24 13:07
Discharge Summary
Discharge Data
Date of Admission: 05/02/24
Date of Discharge: 05/03/24
Hospital Course
Discharging Physician : ,
Disposition : Against Medical Advice, Home
Primary care physician : Dilan Mayes
Principal Discharge diagnosis : Crohn's flare associated with terminal ileitis associated with SBO
Chronic Discharge diagnosis : bipolar, adrenal carcinoma with resection in 2020 status post adjuvant radiation, in remission
Hospital Course : This is a 67-year-old male patient with PMH of adrenal carcinoma s/p radiation/resection, Crohn's disease, bipolar disease and Hx of terminal ileitis on Rinvoq that presented to the ED with abdominal pain, nausea and vomiting. CT
scan showed severe terminal ileitis with underlying stricture and associated SBO. Colorectal surgery and GI were consulted. Symptoms were felt likely due to flare of Crohn's disease so patient was started with IV steroid treatment. NG tube was
placed with suction to treat his SBO. Unfortunately due to social circumstances, he decided to leave the hospital AGAINST MEDICAL ADVICE. Patient has been informed about the risk of leaving [facility], and he understood the risk involved. He has been
informed to follow-up with his outpatient GI doctor within 1 week for further oral prednisone instruction.
Important imaging findings :
05/02/2024 CT abdomen: Severe terminal ileitis with underlying stricturing and resultant high-grade distal small bowel obstruction.
Discharge Plan
-
Patient Disposition: Against Medical Advice
Referrals:
Dilan Mayes, DO [Family Provider] -
Prescriptions:
New
prednisone 20 mg tablet
40 mg PO DAILY 21 Days Qty: 42 0RF
Continued
trazodone 50 mg Tablet
50 mg PO HS
pantoprazole [Protonix] 40 mg Tablet,Delayed Release (Dr/Ec)
40 mg PO DAILY
gabapentin 300 mg Capsule
900 mg PO TID
buspirone 15 mg Tablet
15 mg PO BID
Trintellix 10 mg Tablet
10 mg PO DAILY
Rinvoq
1 tab PO DAILY
Patient Comments:
pt does not know mg
Discharge Orders:
Discharge Patient (As Directed); Ordered 05/03/24
Ordered By: Nella Mcarthur
Discharge Date and Time
Discharge Date/Time: 05/03/24 10:45
Print Language: ALGERIAN
--- NOTE | 2024-05-03 14:50 | CM ---
it consulting manager reviewed patient's chart and patient lives alone. Patient is independent with adl's and ambulation, no dme. Patient is adamant about leaving today, and is now planning on leaving AMA.
PCP: Dilan Mayes
Pharmacy [facility]
Plan; Patient is leaving AMA.
== END 2024-05-03 10:45 | disposition left against medical advice (07) | DRG 386 ==
LOC: 4 WEST ACU 08:02
PROVIDERS: Emergency Medicine; Radiology Neuroradiology; Student in an Organized Health Care Education/Training Program; ADMITTING PHYSICIAN Internal Medicine; ATTENDING PHYSICIAN Internal Medicine; CONSULT PHYSICIAN Internal Medicine Gastroenterology; CONSULT PHYSICIAN Surgery; EMERGENCY PHYSICIAN Emergency Medicine; FAMILY PHYSICIAN Family Medicine
PROC: 0D9670Z Drainage of Stomach with Drainage Device, Via Natural or Artificial Opening (ICD-10-PCS; 2024-05-03)
DX: K50.012 Crohn's disease of small intestine with intestinal obstruction (principal); Z53.29 Procedure and treatment not carried out because of patient's decision for other reasons; E87.1 Hypo-osmolality and hyponatremia; N17.9 Acute kidney failure, unspecified; E83.52 Hypercalcemia; F17.210 Nicotine dependence, cigarettes, uncomplicated; F31.9 Bipolar disorder, unspecified; E86.0 Dehydration; Z79.899 Other long term (current) drug therapy; Z85.858 Personal history of malignant neoplasm of other endocrine glands; Z92.3 Personal history of irradiation
CPT/HCPCS: 71045; 74177; 80053; 81003; 81015; 83605; 83690; 83993; 85025; 85027; 86140; 87086; 96361; 96374; 96375; 99285; Q9967

== ENCOUNTER 2024-12-03 06:02 | Emergency (ER) | payer OTHER, SELFPAY ==
[2024-12-03 06:07] VITALS: BP 122/75
--- NOTE | 2024-12-03 06:15 | ED.GENMED ---
History of Present Illness
General
Chief Complaint: Weakness
Source: patient
Exam Limitations: none
Time Seen by Provider: 12/03/24 06:04
History of Present Illness
History of Present Illness:
See MDM
Past History
Past History
ED Past Medical History: Cancer (Adrenal carcinoma resected 2020), Psychiatric and Other (Newly diagnosed Crohn's disease with terminal ileitis noted on CAT scan April 06)
ED Past Surgical History: Cholecystectomy and Other (Adrenal carcinoma resection 2020)
Social History
Tobacco: Smoker
Alcohol: None
Drug: None
Personal: Single
Living: alone
Employment: Employed
Family History
Family History: Other (Noncontributory)
Phy Exam
Physical Exam
Physical Exam:
See MDM
Course
Orders/Labs/Results
Orders:
Orders
12/03/24 06:14
HydrOXYZINE [Atarax] 25 mg PO NOW STA
12/03/24 06:24
Complete Blood Count/With Diff Urgent
Comprehensive Metabolic Panel Urgent
12/03/24 07:29
CT Head W/o Iv Contrast Urgent
Comment:
Reason For Exam: intermittent tremors
12/03/24 07:44
CR Chest - 2 Views Urgent
Comment:
Reason For Exam: Cough
12/03/24 08:48
Lorazepam [Ativan] 1 mg PO NOW STA
Abnormal Lab Results
12/03/24
06:24
WBC 16.5 H 10^3/uL
(4.8-10.8)
RBC 3.98 L 10^6/uL
(4.70-6.10)
Hgb 9.4 L g/dL
(13.0-18.0)
Hct 31.0 L %
(39.0-52.0)
MCV 77.9 L fL
(80.0-94.0)
MCH 23.6 L pg
(27.0-31.0)
MCHC 30.3 L g/dL
(33.0-37.0)
RDW 18.9 H %
(11.5-14.5)
Plt Count 593 H 10^3/uL
(130-400)
Abs Immat Gran (auto) 0.1 H 10^3/uL
(0-0.05)
Absolute Neuts (auto) 13.3 H 10^3/uL
(1.4-6.5)
Absolute Monos (auto) 1.4 H 10^3/uL
(0.1-0.6)
Immature Gran % 0.7 H %
(0-0.5)
Neutrophils % 80.7 H %
(42.2-75.2)
Lymphocytes % 8.6 L %
(20.5-51.1)
Glucose 116 H mg/dl
(70-99)
AST 12 L U/L
(17-59)
12/03/24 06:24
12/03/24 06:24
Vital Signs
Initial and Last Documented VS:
Initial Vital Signs
Temp Pulse Resp BP Pulse Ox
98.8 F 98 18 122/75 100
12/03/24 06:07 12/03/24 06:07 12/03/24 06:07 12/03/24 06:07 12/03/24 06:07
Last Documented Vital Signs
Temp Pulse Resp BP Pulse Ox
98.8 F 95 20 131/80 98
12/03/24 06:07 12/03/24 08:15 12/03/24 08:15 12/03/24 08:13 12/03/24 07:49
MDM/Problems Addressed
Differential Diagnosis Includes:
Note:
CHIEF COMPLAINT(S)
Tremors occurring when attempting to fall asleep.
HISTORY OF PRESENT ILLNESS
The patient is a 59-year-old male who presented with tremors occurring upon attempting to fall asleep, with symptoms beginning last night around midnight. The tremors predominantly affect the hands, legs, arms, and occasionally the jaw. These
episodes do not occur during the day or when the patient is not attempting to sleep but manifest mainly when trying to fall asleep, although the patient can eventually fall asleep. The patient reports feeling weak and experiences some pain
attributed to Crohns disease. Of note, the patient recently ceased taking pain medications, including oxycodone and hydromorphone, approximately two days ago after previously using them for about one week. The patient stopped these medications
abruptly. The patient has no history of seizures or current headaches.
PAST MEDICAL AND SURGICAL HISTORY
The patient has a history of Crohns disease. The patient recently underwent bowel resection which was followed by an infection, leading to the cessation of Rinvoq (upadacitinib) post-surgery for improved healing.
CHRONIC MEDICAL CONDITIONS SIGNIFICANTLY AFFECTING CARE
1. Crohns disease
MEDICATIONS
- Gabapentin, taken for a couple of years.
- metronidazole (Flagyl), and levofloxacin (Levaquin) identified in the medication bag.
- Celecoxib (Celebrex), which the patient found occasionally ineffective.
REVIEW OF SYSTEMS
- General: No report of daytime tremors.
- Neurological: Tremors noted when attempting to fall asleep. No history of seizures. No headaches.
- Cardiovascular: No chest pain.
- Respiratory: No shortness of breath.
PHYSICAL EXAM
General: Alert, no acute distress. Sitting in bed comfortably
Skin: Warm, dry.
Head: Normocephalic, atraumatic
Neck: Appears supple, trachea midline.
Eyes, Ears, Nose, Mouth, and Throat: Oral mucosa moist.
Cardiovascular: No signs of cyanosis. Regular rate and rhythm
Respiratory: Respirations are non-labored.
Abdomen: Non-distended
Musculoskeletal: No deformities
Neurological: No focal neurological deficit observed. No tremors noted with outstretched hands. Muscle strength grossly intact in all 4 extremities
Psychiatric: Cooperative, appropriate mood and affect.
PROBLEM LIST
Acute Problems:
- Tremors upon attempting to fall asleep.
Chronic Problems:
- Crohns disease
PLAN
1. Order basic blood work to rule out metabolic causes of tremors.
2. Administer hydroxyzine to calm the nervous system and aid sleep.
3. If blood work is unremarkable, recommend follow-up with a neurologist on an outpatient basis if the tremors persist.
DIFFERENTIAL DIAGNOSIS
The Differential Diagnosis includes, in no particular order and is not limited to:
1. Withdrawal symptoms from abrupt cessation of opioids.
2. Restless legs syndrome.
3. Sleep-related movement disorder.
4. Essential tremor.
5. Metabolic derangement (e.g., electrolyte imbalance).
6. Anxiety-related symptoms.
7. Neurological disorders (e.g., Parkinson�s disease).
8. Drug-induced tremor.
9. Epileptic seizures.
10. Tremor due to medications used for Crohn�s or other treatments.
12/03/24 - 07:48
The patient reports increased comfort. Lab results indicate leukocytosis. The patient is not currently on steroids for Crohns disease, which may contribute to the leukocytosis either reactively or due to an active intra-abdominal infection. The
patient is being treated with Levofloxacin. A chest x-ray will be conducted to identify alternative sources of infection.
SUMMARY OF ENCOUNTER
The 59-year-old male patient was seen in the emergency department due to tremors occurring when attempting to fall asleep. These tremors affect the hands, legs, arms, and occasionally the jaw. After the workup was completed with no definitive
explanation for the intermittent tremors, the patient was found sleeping without tremors and appeared non-toxic. He expressed a desire for medication to help with sleep, suggesting some level of anxiety.
DISPOSITION
Discharge.
ASSESSMENT
The assessment focused on tremors associated with sleep initiation possibly related to recent opioid withdrawal or anxiety.
PLAN
The patient was advised to follow up with his primary care physician and a neurologist for ongoing symptoms and management.
PATIENT EDUCATION AND COUNSELING
Discussed outpatient follow-up for primary care and neurology to address ongoing symptoms including tremors and sleep issues.
FOLLOW-UP INSTRUCTIONS
The patient is advised to schedule follow-up visits with his primary care physician and a neurologist to further evaluate and manage his symptoms.
MEDICATION RECONCILIATION
Prescribed a short course of lorazepam (Ativan) on an as-needed basis for anxiety and to aid with sleep.
MEDICAL DECISION MAKING
- Number and Complexity of Problems Addressed: Chronic conditions affecting care include Crohns disease. Differential diagnosis from prior notes includes withdrawal symptoms from abrupt cessation of opioids, sleep-related movement disorder, and
anxiety-related symptoms.
- Data:
- Category 1: Tests and documents were reviewed; however, specific lab tests are not detailed in this section.
- Category 3: Management discussion included considerations for outpatient follow-up with neurology and primary care.
- Risk: Prescription medication was prescribed (lorazepam/Ativan) to manage anxiety and aid sleep. Consideration of admission/observation was weighed against the patients stability and successful outpatient management.
DIAGNOSIS
- Tremor, unspecified [G25.2]
- Anxiety state, unspecified [F41.9]
*Pulse Oximetry
Patient hypoxic: no
*Critical Care Note
Total Time (30-74mins, 75-104mins- exclusive of procedures): Not Applicable
ED Attending Note
-
Portions of this chart may have been created with voice recognition software.� Occasional wrong word or��sound alike� substitutions may have occurred due to the inherent limitations of voice recognition software.
Discharge Plan
Departure
Patient Disposition: Home (Routine Discharge)
Date of Disposition: 12/03/24
Time of Disposition: 08:59
Patient with high blood pressure during this ER visit?: No
Discharge Problem:
Tremor
Instructions: Tremor
Prescriptions:
New
lorazepam [Ativan] 0.5 mg tablet
0.5 mg PO BID PRN (Reason: anxiety) Qty: 10 0RF
No Action
trazodone 50 mg Tablet
50 mg PO HS
pantoprazole [Protonix] 40 mg Tablet,Delayed Release (Dr/Ec)
40 mg PO DAILY
gabapentin 300 mg Capsule
900 mg PO TID
buspirone 15 mg Tablet
15 mg PO BID
Trintellix 10 mg Tablet
10 mg PO DAILY
Referrals:
Aj Diamond MD [Active, Neurology]
UNKNOWN - PT DOES,NOT KNOW [Family Provider]
Activity Restrictions/Additional Instructions:
Please return for any worsening symptoms.
You may return at any time if you have further concerns.
Please follow up with your doctor at the first available appointment, preferably this week. Please discuss your symptoms with your primary care doctor.
Please make an appointment see the neurologist.
Thank you for choosing [facility].
Interventions
Interventions:
*Risk Screen - Suicide Last Done: 12/03/24 06:07
*General Assessment Last Done: 12/03/24 06:07
*Neglect/Abuse Screening Last Done: 12/03/24 06:07
*ED- Fall Risk Assessment Last Done: 12/03/24 06:16
*ED COVID-19 Vaccine History Last Done: 12/03/24 06:16
ED- Cardiac Assessment Last Done: 12/03/24 06:59
ED- Neurological Assessment Last Done: 12/03/24 07:30
ED- Pulmonary Assessment Last Done: 12/03/24 07:30
Discharge Date and Time
Print Language: MALAGASY
[2024-12-03 06:16] VITALS: BMI 23.3
[2024-12-03] MEDS: ATARAX 25 MG PO (06:31)
[2024-12-03 06:41] LABS: Hematocrit 31.0 % (39.0-52.0); Hemoglobin 9.4 g/dL (13.0-18.0); Mean Corp Hgb Conc. 30.3 g/dL (33.0-37.0); Mean Corpuscular Volume 77.9 fL (80.0-94.0); Nucleated Red Blood Cells % 0 % (-); Platelet Count 593 10^3/uL (130-400); Red Cell Dist. Width 18.9 % (11.5-14.5)
[2024-12-03 06:55] LABS: ALT (SGPT) < 10 U/L (0-50); AST (SGOT) 12 U/L (17-59); Albumin 3.8 g/dl (3.5-5.0); Alkaline Phosphatase 69 U/L (38-126); Blood Urea Nitrogen 10 mg/dl (9-20); Calcium 9.6 mg/dl (8.4-10.2); Carbon Dioxide 26 mmol/L (22-30); Chloride 107 mmol/L (98-107); Estimated Creatinine Clearance 108 ml/min; Glucose 116 mg/dl (70-99); Potassium 4.2 mmol/L (3.5-5.1); Sodium 140 mmol/L (135-145); Total Protein 6.8 g/dl (6.3-8.2); eGFR > 60.00
[2024-12-03 07:00] VITALS: BP 124/68
[2024-12-03 08:13] VITALS: BP 131/80
[2024-12-03] MEDS: ATIVAN 1 MG PO (08:54)
[2024-12-03 09:00] VITALS: BP 115/76
== END 2024-12-03 09:30 | disposition home or self-care (01) ==
LOC: EMR 06:02
PROVIDERS: EMERGENCY PHYSICIAN Student in an Organized Health Care Education/Training Program
DX: R25.1 Tremor, unspecified (principal); F41.1 Generalized anxiety disorder; F17.200 Nicotine dependence, unspecified, uncomplicated; Z90.49 Acquired absence of other specified parts of digestive tract
CPT/HCPCS: 99284; 70450; 71046; 80053; 85025